=== PATIENT | female | born 1945 | race Asian ===

== ENCOUNTER 2023-08-13 17:22 | Emergency (ER) | payer OTHER ==
[2023-08-13 18:19] VITALS: BP 143/51; PULSE 84; RESP 16; TEMP 98.7; BMI 23.1
[2023-08-13] MEDS: SODIUM CHLORIDE 0.9% 1000 ML INFUS.BAG IV ONE (18:41)
[2023-08-13 18:51] LABS: HEMATOCRIT 40.8 % (32.4-45.2); HEMOGLOBIN 13.5 G/dL (10.7-15.3); MCH 28.8 pg (25.7-33.7); MCHC 33.1 g/dl (32.0-36.0); MEAN CELL VOLUME 87.1 fl (80-96); MEAN PLT VOLUME 7.9 fl (7.5-11.1); PLATELET COUNT 303.7 10^3/uL (134-434); RBC 4.69 10^6/uL (3.60-5.2); RDW 14.4 % (11.6-15.6); WHITE BLOOD COUNT 13.3 10^3/uL (4.0-10.8)
[2023-08-13 18:59] LABS: INR 0.98 (0.83-1.09); PROTHROMBIN TIME (PATIENT) 11.4 SEC (9.7-13.0)
[2023-08-13 19:02] LABS: ACTIVATED PTT 28.1 SECONDS (25.2-36.5)
[2023-08-13 19:03] LABS: PLATELET ESTIMATE ADEQUATE
[2023-08-13 19:09] LABS: ALBUMIN 4.4 g/dl (3.4-5.0); BILIRUBIN,TOTAL 0.8 mg/dl (0.2-1); CALCIUM 9.7 mg/dl (8.5-10.1); CREATININE 0.9 mg/dl (0.6-1.3); POTASSIUM 4.4 mmol/L (3.5-5.1); TOT PROT 7.3 g/dl (6.4-8.2)
[2023-08-13] MEDS: morphine CARPU-JECT 2 MG/1 ML DISP.SYRIN IVPUSH ONE (19:31)
[2023-08-13] MEDS: KETOROLAC TROMETHAMINE 15 MG/ML VIAL IVPUSH ONE (21:29)
== END 2023-08-13 21:38 | disposition home or self-care (01) ==
LOC: FER 17:22
PROC: 3E033GC Introduction of Other Therapeutic Substance into Peripheral Vein, Percutaneous Approach (ICD-10-PCS; principal; 2023-08-13)
DX: N20.0 Calculus of kidney (principal); R10.9 Unspecified abdominal pain
CPT/HCPCS: 36415; 74177-TC; 80053; 81003; 81015; 85027; 85610; 85730; 87086; 87186; 99285-25; Q9967